=== PATIENT | male | born 1970 | race Caucasian/White ===

== ENCOUNTER → 2020-05-10 12:07 | Outpatient (CLI) | payer BC, SELFPAY ==
[2020-05-10 12:09] LABS: MANUAL DIFFERENTIAL MANUAL DIFFERENTIAL (MANUAL DIFF)
--- NOTE | 2020-05-10 12:29 | CT_ITS ---
PROCEDURE: CT SOFT TISSUE NECK WO/W CON CLINICAL HISTORY: right swollen node Lymphadenopathy COMPARISON: No exams were available for comparison TECHNIQUE: Oral Contrast: None IV Contrast: None Axial images obtained with sagittal and coronal reformats. All CT scans at the facility use one or more dose reduction, viz: automated exposure control, ma/kV adjustment per patient size (including targeted exams where dose is matched to indication, i.e. head), or iterative reconstruction technique. FINDINGS: The exam is somewhat limited without IV contrast. The nasopharyngeal region and oropharynx have an unremarkable appearance. There is mild asymmetric prominence of the palatine tonsils on right containing a small focus of calcification. Direct visualization is suggested. The uvula has an unremarkable appearance. There is hypertrophy of the lingual tonsils on the left as well as thickening of the epiglottis greater on the left. There is resultant obliteration of the vallecula on the left. Direct visualization is suggested. The glottic region has an unremarkable appearance. There are scattered mildly prominent lymph nodes throughout the neck. The largest node on the right is 2 x 1.5 cm, level 2. Level 2 nodes are present on the left as well measuring up to 2 by 0.9 cm.. Scattered shoddy nodes are present bilaterally. There is fibrotic change in the lung apex with mild paraseptal emphysematous changes IMPRESSION: 1. Exam somewhat limited without IV contrast. Better anatomic and pathologic detail could be obtained with IV contrast if clinically desired. 2. Asymmetric soft tissue thickening is present along the base of the tongue on the left with thickening of the epiglottis greater on the left and obliteration of the left vallecula. Neoplasm is a consideration. Direct visualization is suggested. There is also some enlargement of the right palatine tonsil containing a focus of calcification. 3. Cervical adenopathy. Dictated by: Leonel Max MD 05/11/2020 07:08 Leonel Max MD in [facility] 05/11/2020 07:08
[2020-05-10 13:26] LABS: Chloride 93 mmol/L (98-107); Potassium 4.2 mmoL/L (3.5-5.1); Sodium 132 mmol/L (136-145)
[2020-05-10 13:28] LABS: Blood Urea Nitrogen 5 mg/dl (9-20); Estimated Glomerular Filt Rate 142 ml/min (>60); GFR (African American) 172 ML/MIN (>60)
[2020-05-10 13:29] LABS: Alanine Aminotransferase 15 U/L (12-78); Albumin Level 5.7 g/dl (3.5-5.0); Albumin/Globulin Ratio 1.3 (1.1-1.8); Alkaline Phosphatase 90 U/L (38-126); Anion Gap 18.2 mEq/L (5-15); Aspartate Amino Transferase 27 U/L (17-59); Bilirubin,Total 0.8 mg/dl (0.2-1.3); Calcium 10.9 mg/dl (8.4-10.2); Carbon Dioxide 25 mmol/L (22.0-30.0); Globulin 4.3 g/dL (1.3-3.2); Glucose 92 mg/dl (74-100)
[2020-05-10 13:37] LABS: Basophils # 0.1 K/mm3 (0-0.2); Basophils % 0.9 % (0.1-2.0); Eosinophils # 0.4 K/mm3 (0.0-0.4); Eosinophils % 4.6 % (0.1-12.0); Hematocrit 51.6 % (42.0-52.0); Hemoglobin 17.7 g/dL (14.1-18.0); Lymphocytes # 3.4 K/mm3 (0.7-4.5); Lymphocytes % 35.9 % (10-50); Mean Corpuscular HGB Conc 34.4 g/dL (31.8-35.4); Mean Corpuscular Hemoglobin 32.9 pg (27.0-31.2); Mean Corpuscular Volume 95.7 fl (80-94); Mean Platelet Volume 8.7 fl (7.4-10.4); Monocytes # 0.6 K/mm3 (0.1-1.0); Monocytes % 6.1 % (1.7-9.3); Neutrophils # 4.9 K/mm3 (1.8-7.8); Neutrophils % 52.6 % (37.0-80.0); Platelet Count 283 K/mm3 (142-424); Red Blood Count 5.39 M/mm3 (4.60-6.20); Red Cell Distribution Width 13.4 % (11.5-17.5); White Blood Count 9.4 K/mm3 (4.8-10.8)
[2020-05-10 19:22] LABS: Lymphocytes % 45 % (10-50); Monocytes % 5 % (2-9); Neutrophils % 50 % (42-76); Platelet Estimate Normal; RBC Morphology Normal; Total Cells Counted 100
== END ==
PROVIDERS: PCP Nurse Practitioner Family; Visit Provider Otolaryngology
DX: R59.0 Localized enlarged lymph nodes (principal); S03.00XA Dislocation of jaw, unspecified side, initial encounter
CPT/HCPCS: 36415; 70492; 80053; 85007; 85014; 85018; 85048; 85049; Q9967

== ENCOUNTER → 2020-07-09 13:34 | Outpatient (CLI) | payer BC, SELFPAY ==
--- NOTE | 2020-07-09 13:38 | CT_ITS ---
PROCEDURE: CT SOFT TISSUE NECK W CON CLINICAL HISTORY: lesion Left vallecula bilat swollen glands, Left side increased since last scan, Bilat pain bilat bb stickers 75ml iso 370 prior 05/10/20 COMPARISON: CT CT SOFT TISSUE NECK WO/W CON from 05/10/2020 TECHNIQUE: Oral Contrast: 75 mL Isovue 370 IV Contrast: None Axial images obtained with sagittal and coronal reformats. All CT scans at the facility use one or more dose reduction, viz: automated exposure control, ma/kV adjustment per patient size (including targeted exams where dose is matched to indication, i.e. head), or iterative reconstruction technique. FINDINGS: The paranasal sinuses and nasopharynx have an unremarkable appearance. The uvula appears unremarkable. There is enlargement of the right palatine tonsil and appears slightly more prominent compared to the previous exam. 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 The mass has increased in size compared to the previous exam. The aryepiglottic folds and vocal folds have an unremarkable appearance. Lung apices demonstrate paraseptal emphysematous change with COPD. There is bilateral cervical adenopathy. The largest case group is in the left deep cervical chain/level 2A measuring 3.3 x 1.5 cm. These nodes have increased compared to the previous exam. IMPRESSION: Enlarging fungating mass involving the epiglottis centrally and on the left extending to the base of the tongue. The mass measures 3 by 2 cm and has increased in size since the previous exam consistent with neoplasm. Enlarged right palatine tonsils once again noted. Bilateral cervical adenopathy is present with the largest case group in the deep cervical chain on the left. The nodes have increased in size. Dictated by: Leonel Max MD 07/11/2020 12:49 Leonel Max MD in [facility] 07/11/2020 12:49
== END ==
PROVIDERS: PCP Family Medicine; Visit Provider Family Medicine
DX: R59.9 Enlarged lymph nodes, unspecified (principal); J38.7 Other diseases of larynx
CPT/HCPCS: 70491; Q9967